=== PATIENT | female | born 1965 | race Caucasian/White ===

== ENCOUNTER 2017-03-25 12:34 | Emergency (ER) | payer SELFPAY ==
[~2017-03-25] VITALS: Ht 165.1 cm; Wt 54.5 kg
[~2017-03-25 12:34] MED LIST: IBUP400T22 PO; MONT10TA21 PO; PRO-AIR; TRAM50TA2 PO
[2017-03-25 12:38] VITALS: Ht 165.1 cm; Wt 54.5 kg
--- NOTE | 2017-03-25 13:24 | ERD ---
ER Documentation Chief Complaint Date/Time DATE: 03/25/17 TIME: 13:21 Chief Complaint cough/congestion x 5 days; HPI 51-year-old female presents emergency department for productive (greenish) cough for more than 5 days. Also added that she felt like she had a fever last night but never took her temperature. Took DayQuil and NyQuil at home. Denies headache, loss of consciousness, dizziness, blurry vision, changes in vision, photophobia, facial pain, ear pain, throat pain, difficulty swallowing, neck pain, shoulder pain, chest pain, hemoptysis, abdominal pain, back pain, loss of appetite, nausea, vomiting, hematochezia, diarrhea, constipation, urinary symptoms, , the possibility of being , bladder and bowel incontinences, extremity weakness, extremity tenderness, numbness or tingling sensation, difficulty walking, recent travel, recent exposure to illness, recent antibiotic use in the last 3 months. Allergy: NKDA. PMH: Denies. Family medical history: Denies. Medications: Not taking any prescription medications at home. Surgery: Denies. Primary Social History: Not working at this time. Denies smoking, use of alcohol, use of illegal drugs. ROS All systems reviewed and are negative except as per history of present illness. Medications Home Meds Active Scripts Prednisone* (Prednisone*) 20 Mg Tab, 60 MG PO DAILY for 5 Days, TAB Prov:CARMEAL GUILLERMO 03/25/17 Albuterol Sulfate* (Proair HFA*) 8.5 Gm Hfa.aer.ad, 2 PUFF INH Q4, #1 INHALER Prov:CARMELA GUILLERMO 03/25/17 Acetaminophen* (Tylophen*) 500 Mg Capsule, 1 CAP PO Q6H Y for PAIN AND OR ELEVATED TEMP, #20 CAP Prov:CARMELA GUILLERMO 03/25/17 Azithromycin* (Zithromax*) 250 Mg Tablet, 250 MG PO .ESE DIRECTED, #6 TAB TAKE 500 MG (2 TABS) THE FIRST DAY THEN 250 MG (1 TAB) DAYS 2-5 Prov:CARMELA GUILLERMO 03/25/17 Tramadol HCl (Tramadol HCl) 50 Mg Tablet, 50 MG PO Q4 Y for PAIN, #20 TAB Prov:SONAM WHITEHEAD MD 05/31/16 Ibuprofen* (Motrin*) 400 Mg Tab, 400 MG PO Q6, #20 TAB Prov:SONAM WHITEHEAD MD 05/31/16 Montelukast Sodium* (Singulair*) 10 Mg Tab, 10 MG PO HS for 30 Days, TAB Prov:FRANCOIS,ADRIMARIAA Fall NP 11/27/15 Reported Medications [Pro-Air] No Conflict Check 05/07/16 Allergies Allergies: Coded Allergies: No Known Allergy (Unverified , 03/25/17) PMhx/Soc History of Surgery: Yes (LUNG SURGERY) Anesthesia Reaction: No Hx Neurological Disorder: No Hx Respiratory Disorders: Yes (ASTHMA) Hx Cardiac Disorders: No Hx Psychiatric Problems: No Hx Miscellaneous Medical Probl: No Hx Alcohol Use: No Hx Substance Use: No Hx Tobacco Use: No Physical Exam Vitals Vital Signs Date Time Temp Pulse Resp B/P Pulse Ox O2 Delivery O2 Flow Rate FiO2 03/25/17 14:58 98.6 86 20 122/57 96 03/25/17 12:38 98.7 100 20 115/55 95 Physical Exam CONSTITUTIONAL: Well-appearing; well-nourished; in no apparent distress. HEAD: Normocephalic; atraumatic. EYES: Conjunctiva clear, sclera non-icteric, EOM intact. PERRL Ears: Hearing intact. EACs clear, TMs non-bulging, non-inflamed, translucent & mobile, ossicles normal appearance, No obstructions, no erythema, no discharges Nose: No obstructions. No polyps. No external lesions. Nasal congestion. No external lesions, septum and turbinates normal. No rhinorrhea. No discharges. Frontal sinus is non-tender to palpation. Maxillary sinus is non-tender to palpation. MOUTH: Moist mucous membranes, no lesion, no obstructions, no vesicles, no thrush, patent airway Throat: Uvula in midline. Right tonsil is +1 with no erythema, no exudate. Left tonsil is +1 with no erythema, no exudate. Tolerating secretions well. Good gag reflex. Patent airway. Neck: Supple, without lesions, bruits, or adenopathy. No mass. Thyroid non- enlarged and non-tender to palpation. CHEST: Symmetrical chest. Respirations even and not labored. No retractions noted. CARDIOVASCULAR: Normal S1, S2. RRR. No murmurs, gallops. RESPIRATORY: Normal chest excursion with respiration; breath sounds clear and equal bilaterally; no wheezes, rhonchi, or rales. Breathing even and unlabored. Speaking in clear, full, and complete sentences w/ ease. ABDOMEN: Normal bowel sounds normal. Soft, round, non-distended, non-guarding, no tenderness, no rebound, no organomegaly, no masses, no pulsating abdominal mass. No hernia. No peritoneal signs. : No CVA tenderness. BACK: Symmetrical shoulder. Spine is midline without deformity, tenderness. No evidence of trauma or deformity. PELVIS: Stable pelvis. No evidence of trauma or deformity. MUSCULOSKELETAL: Normal gait and station. No misalignment, asymmetry, crepitation, defects, tenderness, masses, effusions, decreased range of motion, instability, atrophy or abnormal strength or tone in the head, neck, spine, ribs , pelvis or extremities. No calf tenderness. NEUROVASCULAR: Distal pulses are present. Pedal pulse are present, equal, and normal. Capillary refills are < 2 seconds. NEUROLOGIC: Alert and oriented x4. Speaks full and clear sentences. Cranial Nerves II-XII normal. Sensation to pain, touch, and proprioception normal. Grossly unremarkable. No neurologic deficits. Romberg test is negative. PSYCHOLOGICAL: The patients mood and manner are appropriate. No hallucinations , delusions. Not SI. Not HI. Has the capacity to decide for self SKIN: Normal for age and ethnicity; warm; dry; good turgor; no apparent lesions or exudates. No rashes, hives, discoloration. Intact. Procedures/MDM Examination: Please see physical examination. Disease process, medical treatment was explained to the patient and family member. They verbalized understanding and agreed with the diagnostic tests, medical treatment, and follow-up care. Radiology: Chest x-ray Impression: Stable findings of chronic bronchitis. Development of right lower lobe consolidation suspicious for pneumonia. Recommend repeat imaging scan after appropriate therapy to document resolution/evolution of findings. Atherosclerosis. Re-evaluation: Alert and oriented 4. Speaks full and clear sentences. Tolerating secretions. No difficulty swallowing. Patent airway. Denies headache, dizziness, blurry vision, neck pain, throat pain, difficulty swallowing, shoulder pain, chest pain, abdominal pain, nausea. No episode of emesis in the emergency department. Respirations even and unlabored. Lung sounds are clear to auscultation. No wheezing. No crackles. No rhonchi. No abdominal tenderness. No peritoneal signs. No CVA tenderness. No neurovascular deficits. No neurological deficits. Consultation: None. Differential diagnosis: Pneumonia versus bronchitis versus upper respiratory infection Medical decision makin-year-old female presents emergency department for productive (greenish) cough for more than 5 days. Also added that she felt like she had a fever last night but never took her temperature. Took DayQuil and NyQuil at home. Patient's complaint, patient's history about her complaint , my physical findings, diagnostic test results, my reevaluation are consistent with my final diagnosis of chronic bronchitis suspicious for early pneumonia. Hemodynamically stable for discharge home. Medications prescribed are the following: Azithromycin. Pro-air. Prednisone. Tylenol. Patient and family member are made aware of the side effects and adverse reactions of the medications prescribed. Instructed on when to seek emergent and medical attention in case allergic/anaphylactic reactions or severe side effects and or adverse reactions to medications. Patient and family member verbalized understanding. Patient instructed Instructed to follow-up with his PCP in 24-48 hours. Stated that she will make sure to see her primary care physician the next 24-48 hours. Instructed to Call 911 for chest pain, shortness of breath. Advised to come back here in ED as soon as possible for severity of symptoms which includes but not limited to: any new symptoms; shortness of breath/difficulty of breathing; cardiovascular changes; severe gastrointestinal symptoms; signs and symptoms of bleeding and or infection; signs of compartment syndrome/neurovascular changes; neurological changes/deficits. Patient and family member verbalized understanding. Upon discharge, patient is alert and oriented x 4, speaks full and clear sentences, denies pain, has no neurological deficits, has no neurovascular deficits, difficulty of breathing. Breathing even and unlabored. Lung sounds are clear to auscultation. Not in distress. Appears comfortable. Ambulatory with steady gait. Appears satisfied with care provided here in ED. Departure Diagnosis: Primary Impression: Acute bronchitis Condition: Good Additional Instructions: Instructed to follow-up with his PCP in 24-48 hours. Stated that she will make sure to see her primary care physician the next 24-48 hours. Instructed to Call 911 for chest pain, shortness of breath. Advised to come back here in ED as soon as possible for severity of symptoms which includes but not limited to: any new symptoms; shortness of breath/difficulty of breathing; cardiovascular changes; severe gastrointestinal symptoms; signs and symptoms of bleeding and or infection; signs of compartment syndrome/neurovascular changes; neurological changes/deficits. Patient and family member verbalized understanding. CARMELA GUILLERMO Mar 25, 2017 13:24
--- NOTE | 2017-03-25 14:10 | RADRPT ---
PROCEDURE: XR Chest 2 Views CLINICAL INDICATION: Cough TECHNIQUE: Frontal and lateral views of the chest were obtained COMPARISON: 11/21/2015 FINDINGS: The cardiac size is normal. Aortic vascular calcifications are demonstrated. No pulmonary vascular congestion is demonstrated. Stable findings of chronic bronchitis. Development of right lower lobe consolidation suspicious for pneumonia. Mild degenerative changes of the visualized osseous structures are visualized. IMPRESSION: 1. Stable findings of chronic bronchitis. Development of right lower lobe consolidation suspicious for pneumonia. Recommend repeat imaging scan after appropriate therapy to document resolution/evol ution of findings. 2. Atherosclerosis. RPTAT:PP .Frederic Ford MD, Date Time Electronically viewed and signed by .Frederic Ford MD, on 03/25/2017 14:10 .V/
[2017-03-25] MEDS ORDERED: PRED20TA PO (14:49)
[2017-03-25] MEDS ORDERED: ALBU8.5H3 INH (14:49)
[2017-03-25] MEDS ORDERED: AZIT250T94 PO (14:49)
[2017-03-25] MEDS ORDERED: ACET500C5 PO (14:49)
[2017-03-25 14:58] VITALS: BP 122/57; PULSE 86; RESP 20; TEMP 98.6
== END 2017-03-25 14:58 | disposition home or self-care (01) ==
LOC: FTE 12:34
DX: J20.9 Acute bronchitis, unspecified (principal); J45.909 Unspecified asthma, uncomplicated
CPT/HCPCS: 71020

== ENCOUNTER 2019-06-30 17:22 | Emergency (ER) | payer SELFPAY ==
[~2019-06-30] VITALS: Ht 167.6 cm; Wt 52.3 kg
[~2019-06-30 17:22] MED LIST changes: +ACET500C5 PO; +ALBU18HF INHALATION; +ALBU8.5H8 INH; +AZIT250T PO; +D-ME473S2 PO; +IBUP-1561 PO; -IBUP400T22 PO; +PRED20TA PO
[2019-06-30 17:35] VITALS: Ht 167.6 cm; Wt 52.3 kg
[2019-06-30] MEDS ORDERED: LORAZEPAM 1 MG TAB PO ONE (18:30)
[2019-06-30 19:07] VITALS: BP 110/69; PULSE 84; RESP 20
== END 2019-06-30 19:07 | disposition home or self-care (01) ==
LOC: E/R 17:22
DX: F41.0 Panic disorder [episodic paroxysmal anxiety] (principal); J45.909 Unspecified asthma, uncomplicated
CPT/HCPCS: 93005